=== PATIENT | male | born 1980 ===

== ENCOUNTER 2017-02-15 06:34 | Emergency (ER) | payer SELFPAY | END 2017-02-15 06:44 | disposition left against medical advice (07) | LOC: C.ER 06:34 | DX: R10.9 Unspecified abdominal pain (principal); Z02.9 Encounter for administrative examinations, unspecified ==

== ENCOUNTER 2017-03-16 21:10 | Emergency (ER) | payer SELFPAY ==
[2017-03-16 21:20] VITALS: BP 139/87; PULSE 79; RESP 20; TEMP 97.8; O2SAT 98
--- NOTE | 2017-03-16 21:53 | C.PDOC ---
History Of Present Illness 36 year old male, whose PMHx includes Gastritis, presents to the ED via EMS for evaluation of epigastric abdominal pain which began while he was at work earlier today. Patient states he was recently evaluated at [facility] where his bloodwork was unremarkable. Patient was discharged with Rx for Maalox and instructions to follow up with his PMD. Patient began experiencing acute and severe pain while at work today and his boss called EMS for further evaluation. Patient reports his pain has subsided upon ED arrival and denies fever, chills, nausea, vomiting, diarrhea, or constipation. Time Seen by Provider: 03/16/17 21:34 Chief Complaint (Nursing): Abdominal Pain History Per: Patient, EMS History/Exam Limitations: no limitations Onset/Duration Of Symptoms: Hrs Current Symptoms Are (Timing): Better Severity: Severe Location Of Pain/Discomfort: Epigastric Radiation Of Pain To:: None Quality Of Discomfort: "Pain" Associated Symptoms: denies: Fever, Chills, Nausea, Vomiting, Diarrhea, Constipation Additional History Per: Patient Past Medical History Vital Signs: Last Vital Signs Temp 97.8 F 03/16/17 21:15 Pulse 79 03/16/17 21:15 Resp 20 03/16/17 21:15 BP 139/87 03/16/17 21:15 Pulse Ox 98 03/17/17 04:08 Family History: States: Unknown Family Hx - Social History Hx Alcohol Use: Yes (''Rarely'') Hx Substance Use: No - Immunization History Hx Tetanus Toxoid Vaccination: No Hx Influenza Vaccination: No Hx Pneumococcal Vaccination: No Review Of Systems Constitutional: Negative for: Fever, Chills Gastrointestinal: Positive for: Abdominal Pain (epigastric ). Negative for: Nausea, Vomiting, Diarrhea, Constipation Physical Exam - Physical Exam Appears: Non-toxic, No Acute Distress Skin: Normal Color, Warm, Dry Head: Atraumatic, Normacephalic Eye(s): bilateral: Normal Inspection Oral Mucosa: Moist Neck: Supple Chest: Symmetrical, No Deformity, No Tenderness Cardiovascular: Rhythm Regular, No Murmur Respiratory: Normal Breath Sounds, No Rales, No Rhonchi, No Wheezing Gastrointestinal/Abdominal: Soft, Tenderness (minimal, to epigastric area and right upper quadrant on palpation ), No Guarding, No Rebound Extremity: Normal ROM, Capillary Refill (less than 2 seconds ) Neurological/Psych: Oriented x3, Normal Speech, Normal Cognition Gait: Steady ED Course And Treatment - Laboratory Results Result Diagrams: 03/16/17 22:07 03/16/17 22:07 O2 Sat by Pulse Oximetry: 98 (on RA) Pulse Ox Interpretation: Normal - CT Scan/US US Abdomen Other Rad Studies (CT/US): Interpreted By Me, Read By Radiologist, Radiology Report Reviewed CT/US Interpretation: EXAM: US Abdomen Limited, Right Upper Quadrant. CLINICAL HISTORY: 36 years old, male; Pain; Abdominal pain; Epigastric; Additional info: Ruq, epigastric pain. TECHNIQUE: Real-time ultrasound of the right upper quadrant with image documentation. COMPARISON: No relevant prior studies available. FINDINGS: Liver: The liver is increased in echogenicity and unremarkable in size measuring 15 cm in. longitudinal dimension. No intrahepatic bile duct dilation. Gallbladder: Multiple stones are identified within the gallbladder. Trace gallbladder wall thickening is. identified, measuring 4 mm. Common bile duct: No stones. Mild dilation, measuring 7.7 mm. Pancreas: Visualization of the pancreas is limited by overlying bowel gas. Right kidney: Unremarkable in echogenicity and size measuring 11.9 x 4.1 x 4.5 cm. No. hydronephrosis. IMPRESSION: Cholelithiasis with trace the bladder wall thickening. Fatty infiltration of the liver. Prominence of the common bile duct. Limited evaluation of the pancreas, secondary to overlying bowel gas. Progress Note: Labs and abdominal US ordered and reviewed. Pepcid PO administered. Patient refuses pain medication at this time. On reassessment, patient is resting comfortably, showing no signs of distress and continues to remain stable at this time. Patient reports pain has resolved and is stable for discharge. Patient is advised to follow up with his PMD/clinic within 1-2 days for further evaluation and/or return to the ED if symptoms worsen. Disposition Counseled Patient/Family Regarding: Diagnosis, Need For Followup - Disposition Referrals: Amadou Arthur MD [Staff Provider] - Disposition: HOME/ ROUTINE Disposition Time: 21:53 Condition: STABLE Additional Instructions: Please follow up with PMD Return to ER Prescriptions: Aluminum Hydroxide/Magnesium H [Maalox 30 ml] 30 ml PO TID #100 ml Famotidine [Pepcid] 20 mg PO DAILY #20 tab Instructions: Gastritis (ED), Gallstones (ED) Print Language: [id number] - Clinical Impression Clinical Impression: Gastritis, Gallstones - PA / [employer] / Resident Statement MD/DO has reviewed & agrees with the documentation as recorded. - Scribe Statement The provider has reviewed the documentation as recorded by the Scribe (Radha Vargas) All medical record entries made by the Scribe were at my direction and personally dictated by me. I have reviewed the chart and agree that the record accurately reflects my personal performance of the history, physical exam, medical decision making, and the department course for this patient. I have also personally directed, reviewed, and agree with the discharge instructions and disposition.
[2017-03-16 22:09] LABS: BASO # 0.1 K/uL (0.0-0.2); BASO % 0.8 % (0.0-2.0); EOS # 0.1 K/uL (0.0-0.7); EOS % 1.4 % (0.0-4.0); HEMATOCRIT 40.5 % (35.0-51.0); LYMPH # 2.5 K/uL (1.0-4.3); LYMPH % 28.2 % (20.0-40.0); MEAN CELL VOLUME 88.3 fL (80.0-94.0); MEAN CORPUSCULAR HGB CONC 33.9 g/dL (33.0-37.0); MEAN PLATELET VOLUME 8.1 fL (7.2-11.7); MONO # 0.4 K/uL (0.0-0.8); MONO % 4.7 % (0.0-10.0); WHITE BLOOD COUNT 8.8 K/uL (4.8-10.8)
[2017-03-16 22:19] LABS: CHLORIDE 102 mmol/L (98-107)
[2017-03-16 22:20] LABS: SODIUM 134 mmol/L (132-148)
[2017-03-16 22:21] LABS: POTASSIUM 5.1 mmol/L (3.6-5.2)
[2017-03-16 22:22] LABS: ALB/GLOB RATIO 1.3 (1.0-2.1); ALKALINE PHOSPHATASE 110 U/L (38-126); AST/SGOT 112 U/L (17-59); BILIRUBIN,TOTAL 1.5 mg/dL (0.2-1.3); BLOOD UREA NITROGEN 16 mg/dL (9-20); CARBON DIOXIDE 20 mmol/L (22-30); GFR AFRICAN-AMERICAN > 60; TOTAL PROTEIN 8.2 g/dL (6.3-8.3)
[2017-03-16 22:23] LABS: ALT/SGPT 41 U/L (21-72); CALCIUM 9.3 mg/dl (8.6-10.4); GLUCOSE,RANDOM 129 mg/dL (75-110)
--- NOTE | 2017-03-16 23:12 | US ---
EXAM: US Abdomen Limited, Right Upper Quadrant CLINICAL HISTORY: 36 years old, male; Pain; Abdominal pain; Epigastric; Additional info: Ruq, epigastric pain TECHNIQUE: Real-time ultrasound of the right upper quadrant with image documentation. COMPARISON: No relevant prior studies available. FINDINGS: Liver: The liver is increased in echogenicity and unremarkable in size measuring 15 cm in longitudinal dimension. No intrahepatic bile duct dilation. Gallbladder: Multiple stones are identified within the gallbladder. Trace gallbladder wall thickening is identified, measuring 4 mm. Common bile duct: No stones. Mild dilation, measuring 7.7 mm. Pancreas: Visualization of the pancreas is limited by overlying bowel gas. Right kidney: Unremarkable in echogenicity and size measuring 11.9 x 4.1 x 4.5 cm. No hydronephrosis. IMPRESSION: Cholelithiasis with trace the bladder wall thickening. Fatty infiltration of the liver. Prominence of the common bile duct. Limited evaluation of the pancreas, secondary to overlying bowel gas.
== END 2017-03-16 23:27 | disposition home or self-care (01) ==
LOC: C.ER 21:10
DX: K29.70 Gastritis, unspecified, without bleeding (principal); K80.20 Calculus of gallbladder without cholecystitis without obstruction